=== PATIENT | male | born 1985 | race Caucasian/White ===

== ENCOUNTER 2019-07-25 09:41 | Emergency (ER) | payer BC ==
[2019-07-25 09:56] VITALS: BP 133/74
--- NOTE | 2019-07-25 10:13 | ED ---
Throat Pain/Nasal Congestion - HPI Summary HPI Summary: 33 yr old male with the complaint of eye irritation and mild lower right eyelid swelling. Onset of symptoms over the past couple of days. He denies drainage. He denies symptoms with the left eye. He has no other complaints. He does not wear contact lenses. He has not been ill lately. No cold or cough symptoms. - History of Current Complaint Chief Complaint: UCEye Time Seen by Provider: 07/25/19 09:58 - Allergies/Home Medications Allergies/Adverse Reactions: Allergies Allergy/AdvReac Type Severity Reaction Status Date / Time No Known Allergies Allergy Verified 07/25/19 09:53 PMH/Surg Hx/FS Hx/Imm Hx Infectious Disease History: No Infectious Disease History: Denies: Traveled Outside the [place] in Last 30 Days - Family History Known Family History: Positive: None - Social History Occupation: Employed Full-time - [employer] Alcohol Use: Weekly Substance Use Type: Reports: None Smoking Status (MU): Never Smoked Tobacco Review of Systems Constitutional: Negative Positive: Other - redness to conjunctiva, and mild swelling lower right eyelid. . Negative: Photophobia, Blurred Vision, Diplopia, Drainage All Other Systems Reviewed And Are Negative: Yes Physical Exam Triage Information Reviewed: Yes Vital Signs On Initial Exam: Initial Vitals Temp Pulse Resp BP Pulse Ox 97.7 F 57 14 133/74 98 07/25/19 09:53 07/25/19 09:53 07/25/19 09:53 07/25/19 09:53 07/25/19 09:53 Vital Signs Reviewed: Yes Appearance: Positive: Well-Appearing, No Pain Distress Skin: Positive: Warm, Skin Color Reflects Adequate Perfusion Head/Face: Positive: Normal Head/Face Inspection Eyes: Positive: EOMI, MERY, Conjunctiva Inflammed - bilateral right greater than the left. There is a small stye lower lateral right eyelid. ENT: Positive: Normal ENT inspection Neck: Positive: Nontender Respiratory/Lung Sounds: Positive: Clear to Auscultation, Breath Sounds Present Cardiovascular: Positive: RRR. Negative: Murmur Abdomen Description: Negative: Distended Musculoskeletal: Positive: Strength/ROM Intact Neurological: Positive: Sensory/Motor Intact, Alert, Oriented to Person Place, Time, CN Intact II-III, Normal Gait, Speech Normal Psychiatric: Positive: Normal Diagnostics - Vital Signs Vital Signs Temp Pulse Resp BP Pulse Ox 07/25/19 09:53 97.7 F 57 14 133/74 98 - Laboratory Lab Statement: Any lab studies that have been ordered have been reviewed, and results considered in the medical decision making process. EENT Course/Dx - Course Course Of Treatment: 33 yr old male with stye and conjunctivitis. Rx with sulfa drops and also keflex antibiotics. Referral to optho for follow up. - Diagnoses Provider Diagnoses: Conjunctivitis, Hordeolum externum (stye) Discharge ED - Sign-Out/Discharge Documenting (check all that apply): Patient Departure All imaging exams completed and their final reports reviewed: No Studies - Discharge Plan Condition: Good Disposition: HOME Prescriptions: Cephalexin CAP* [Keflex CAP*] 500 mg PO TID #30 cap Sulfacetamide 10 % OPTH.JOSEPHINE* [Sulamyd 10% Opth*] 1 drop BOTH EYES Q4H #1 btl Patient Education Materials: Stye (ED), Conjunctivitis (ED) Referrals: No Primary Care Phys,NOPCP [Primary Care Provider] - Michell Steward MD [Medical Doctor] - 2 Days - Billing Disposition and Condition Condition: GOOD Disposition: Home
== END 2019-07-25 10:17 | disposition home or self-care (01) ==
LOC: UCCORT 09:41
DX: H00.012 Hordeolum externum right lower eyelid (principal); H10.9 Unspecified conjunctivitis
CPT/HCPCS: 99202; G0463